=== PATIENT | male | born 1955 | race Caucasian/White ===

== ENCOUNTER → 2024-12-24 10:40 | Outpatient (BNVA) | payer MEDICARE, SELFPAY | PROVIDERS: PCP Family Medicine; Visit Provider Family Medicine | DX: I10 Essential (primary) hypertension (principal); I50.9 Heart failure, unspecified; I71.20 Thoracic aortic aneurysm, without rupture, unspecified; E55.9 Vitamin D deficiency, unspecified; I12.9 Hypertensive chronic kidney disease with stage 1 through stage 4 chronic kidney disease, or unspecified chronic kidney disease; N18.30 Chronic kidney disease, stage 3 unspecified; J45.909 Unspecified asthma, uncomplicated | CPT/HCPCS: 80053; 80061; 82306; 82607; 83036; 85025 ==

== ENCOUNTER 2025-02-26 17:56 | Emergency (ER) | payer MEDICARE, SELFPAY ==
[2025-02-26 17:58] VITALS: BP 169/82; PULSE 65; RESP 16; TEMP 36.6; O2SAT 97; BMI 33.2
--- NOTE | 2025-02-26 18:32 | XRR_ITS ---
PROCEDURE INFORMATION: Exam: XR Chest Exam date and time: 02/26/2025 6:38 PM Age: 69 years old Clinical indication: Shortness of breath; Additional info: SOB, HX asthma, clear lungs after tx TECHNIQUE: Imaging protocol: Radiologic exam of the chest. Views: 1 view. COMPARISON: No relevant prior studies available. FINDINGS: Lungs: Unremarkable. No consolidation. Pleural spaces: Unremarkable. No pleural effusion. No pneumothorax. Heart/Mediastinum: Unremarkable. No cardiomegaly. Bones/joints: Unremarkable. XR/XR chest 1V portable [id number] IMPRESSION: No acute findings.
--- NOTE | 2025-02-26 18:32 | ECG_ITS ---
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 Measurements Intervals [place] Rate: 66 P: 24 [place]: 153 QRS: -11 QRSD: 94 T: 213 QT: 408 QTc: 428 Interpretive Statements SINUS RHYTHM LEFT VENTRICULAR HYPERTROPHY AND ST-T CHANGE [VOLTAGE CRITERIA PLUS ST/T ABNORMALITY] No previous ECG available for comparison Electronically Signed On 02-26-2025 23:28:35 CDT by Sudarshan See M.D. [email or web address] [id number]
[2025-02-26 18:42] LABS: Hematocrit 46.6 % (37-53); Hemoglobin 15.90 g/dL (11.27-16.99); Mean Corpuscular HGB Conc 34.1 g/dL (30-55); Mean Corpuscular Hemoglobin 28.5 pg (27-33); Mean Corpuscular Volume 83.5 fl (82-101); Nucleated Red Blood Cells % 0 %; Platelet Count 246 10^3/cmm (157-399); Red Blood Count 5.58 10^6/uL (3.85-5.65); White Blood Count 7.79 10^3/uL (3.29-11.43)
[2025-02-26 18:49] LABS: INR 0.85 (0.8-1.2); Prothrombin Time 12.30 SECONDS (12.1-14.9)
[2025-02-26 18:59] LABS: Troponin(5th) Baseline 15 ng/L (0-15)
[2025-02-26 19:06] LABS: Alanine Aminotransferase 16 U/L (0-41); Albumin Level 4.6 g/dL (3.5-5.2); Alkaline Phosphatase 98 U/L (40-130); Anion Gap 18.2 (5-19); Aspartate Amino Transferase 16 U/L (0-40); Blood Urea Nitrogen 15 mg/dL (8-23); Calcium 9.5 mg/dL (8.5-10.5); Carbon Dioxide 19 mmol/L (22-29); Chloride 111 mmol/L (98-107); Creatinine Clr Calc Pharmacy 80.4399; Globulin 2.4 g/dL (1.3-4.6); Glucose 102 mg/dL (65-115); Magnesium 2.2 mg/dL (1.7-2.3); NT Pro B Type Natriuretic Pept 138 pg/mL (0-125); Osmolality Calculated 299 mOsm/kg (285-295); Potassium 4.2 mmol/L (3.5-5.1); Sodium 144 mmol/L (136-145); Total Protein 7.0 g/dL (6.6-8.7)
[2025-02-26 19:24] VITALS: BP 155/85; PULSE 57; O2SAT 93
[2025-02-26 19:53] LABS: Respiratory Syncytial Virus Ce NEGATIVE (Negative); SARS-CoV-2 PCR NEGATIVE (Negative)
--- NOTE | 2025-02-26 20:02 | ED_ITS ---
HPI - SOB/Dyspnea 2 General: Chief Complaint: Shortness of Breath/Dyspnea Stated Complaint: SOB Time Seen by Provider: 02/26/25 17:57 History of Present Illness: HPI Narrative: Patient presenting to the emergency department with acute onset of shortness of breath while he was driving, he tried his inhaler but then ran out, he reports he was feeling lightheaded and diaphoretic and EMS was called by a concerned bystander, they gave him a DuoNeb and he reports his symptoms have markedly improved but still feels somewhat short of breath. Denies any chest pain, denies passing out, denies fever, denies leg swelling or calf pain. He reports a remote history of CHF and stage III CKD, history of hypertension, history of asthma, history of CAD. He reports having viral symptoms approximately 2 weeks ago that have since resolved, he denies recent fever or cough in the last 2 days Related Data Previous Rx's ?Medication ?Instructions ?Recorded albuterol sulfate 90 mcg/actuation 1 inh inhalation QI D PRN shortness 12/24/24 aerosol inhaler (Ventolin HFA) of breath or wheezing # 6.7 grams amlodipine 10 mg tablet 10 mg PO DAILY bp #90 tabs 0 12/24/24 carvedilol 3.125 mg tablet 3.125 mg PO BID bp #90 tabs 12/24/24 cholecalciferol (vitamin D3) 25 25 mcg PO DAILY #1 cap 12/24/24 mcg (1,000 unit) capsule ipratropium 0.5 mg-albuterol 3 mg 3 ml inhalation Q6H PRN wheezing 12/24/24 (2.5 mg base)/3 mL nebulization #1 mL soln olmesartan 40 mg tablet 40 mg PO DAILY bp #90 tabs 0 12/24/24 Allergies Allergy/AdvReac Type Severity Reaction Status Date / Time atenolol Allergy Severe low pulse Verified 12/24/24 10:05 and irregular heart rate codeine Allergy Severe ALGY-Hives Verified 12/24/24 10:05 doxycycline Allergy Severe ALGY-Hives Verified 12/24/24 10:05 hydrocodone Allergy Severe itching, Verified 12/24/24 10:05 swollen eyes ibuprofen Allergy Severe ALGY-Hives Verified 12/24/24 10:05 Iodinated Contrast Media Allergy Severe itching Verified 12/24/24 10:05 and rash naproxen Allergy Severe ALGY-Anaphy Verified 12/24/24 10:05 laxis oxycodone Allergy Severe ALGY-Hives Verified 12/24/24 10:05 Sulfa (Sulfonamide Allergy Severe transient Verified 12/24/24 10:05 Antibiotics) renal insufficiency tramadol Allergy Severe severe Verified 12/24/24 10:05 itching, swollen eyes atorvastatin Allergy Intermediate ADR-Cramping Verified 12/24/24 10:05 of the Muscles azithromycin Allergy Intermediate angioedema Verified 12/24/24 10:05 dexamethasone Allergy Intermediate scalp Verified 12/24/24 10:05 itch, seeing sopts phenylephrine (From [place]icks Allergy Intermediate itching, Verified 12/24/24 10:05 Sinex (PE)) swelling triamterene Allergy Intermediate ALGY-Hives Verified 12/24/24 10:05 sulfamethoxazole (From Allergy Mild ADR-Itching Verified 12/24/24 10:05 Sulfamethoxazole-Trimethoprim) trimethoprim (From Allergy Mild ADR-Itching Verified 12/24/24 10:05 Sulfamethoxazole-Trimethoprim) PFSH ED 2 PFSH: Social History Smoking and tobacco/nicotine status: never used tobacco/nicotine Physical Exam 2 Narrative: EXAM NARRATIVE: Gen: A&Ox4, no acute distress, nontoxic appearing HEENT: Normocephalic, atraumatic, no scleral icterus, external ears normal, moist mucous membranes Neck: Supple, full range of motion, no observable masses Lungs: No Respiratory distress, Lungs clear to auscultation bilaterally no rales, rhonchi, wheezing CV: Regular rate and rhythm, no murmur, no pitting edema to lower extremities bilaterally Abdomen: Soft, nondistended, nontender to palpation MSK: No joint swelling, FROM all 4 extremities Skin: No rashes, petechiae, lesions. Normal color per patient. Neuro: Alert and oriented, no slurred speech, sensation and strength grossly intact all 4 extremities Psych: Appropriate for situation. Course 2 Reevaluation(s): Reevaluation #1: Patient reassessed, reports he is now asymptomatic, chest x-ray no acute pathology, EKG showing possible LVH with no acute ischemia or arrhythmia, blood work with proBNP 138 nonspecific without evidence of peripheral or central volume overload, negative troponin, at this time patient is stable for discharge with follow-up with his PCP. Also would recommend he see a machine stapler, he reports that he will follow-up with a machine stapler referred to him by his PCP and does not want an referral in the ER. Time: 20:00 Vital Signs: Vital signs: Vital Signs Temperature 98 F 02/26/25 17:58 Pulse Rate 55 L 02/26/25 20:54 Respiratory Rate 16 02/26/25 17:58 Blood Pressure 162/79 02/26/25 20:54 Pulse Oximetry 94 02/26/25 20:54 Oxygen Delivery Me thod Room Air 02/26/25 17:58 MDM - SOB/Dyspnea Medical Decision Making 69-year-old male history of CHF CAD CKD and asthma presenting to the emergency room with acute onset of shortness of breath while driving, attempted his albuterol inhaler without improvement, did receive a DuoNeb by EMS and reports his symptoms have improved prior to arrival, on my exam he does not have any obvious wheezing or decreased breath sounds, he has a benign physical exam in the ER, will obtain a cardiac workup given his underlying medical history, reassess for disposition Lab Data No leukocytosis, no anemia, mild acidosis, creatinine 1.1, normal electrolytes, normal troponin, proBNP minimally elevated but in the indeterminate zone 02/26/25 18:04 02/26/25 18:04 Labs/Radiology: Radiology Impressions Chest X-Ray 02/26/25 18:32 IMPRESSION: No acute findings. Laboratory Results WBC 7.79 10^3/uL (3.29-11.43) 02/26/25 18:04 RBC 5.58 10^6/uL (3.85-5.65) 02/26/25 18:04 Hgb 15.90 g/dL (11.27-16.99) 02/26/25 18:04 Hct 46.6 % (37-53) 02/26/25 18:04 MCV 83.5 fl (82-101) 02/26/25 18:04 MCH 28.5 pg (27-33) 02/26/25 18:04 MCHC 34.1 g/dL (30-55) 02/26/25 18:04 RDW 13.3 % (12.1-15.1) 02/26/25 18:04 Plt Count 246 10^3/cmm (157-399) 02/26/25 18:04 MPV 9.6 fL (7.4-10.4) 02/26/25 18:04 Neut % (Auto) 56.5 % 02/26/25 18:04 Lymph % (Auto) 35.0 % 02/26/25 18:04 [place] % (Auto) 6.3 % 02/26/25 18:04 Eos % (Auto) 1.3 % 02/26/25 18:04 Baso % (Auto) 0.5 % 02/26/25 18:04 Neut # (Auto) 4.40 10^3/uL (1.8-7.7) 02/26/25 18:04 Lymph # (Auto) 2.7 10^3/uL (0.8-4.8) 02/26/25 18:04 [place] # (Auto) 0.5 10^3/uL (0.2-0.9) 02/26/25 18:04 Eos # (Auto) 0.1 10^3/uL (0.0-0.8) 02/26/25 18:04 Baso # (Auto) 0.0 10^3/uL (0.0-0.1) 02/26/25 18:04 Nucleated RBC % (auto) 0 % 02/26/25 18:04 Nucleated RBCs # 0.0 /100WBC 02/26/25 18:04 PT 12.30 SECONDS (12.1-14.9) 02/26/25 18:04 INR 0.85 (0.8-1.2) 02/26/25 18:04 Sodium 144 mmol/L (136-145) 02/26/25 18:04 Potassium 4.2 mmol/L (3.5-5.1) 02/26/25 18:04 Chloride 111 mmol/L (98-107) H 02/26/25 18:04 Carbon Dioxide 19 mmol/L (22-29) L 02/26/25 18:04 Anion Gap 18.2 (5-19) 02/26/25 18:04 BUN 15 mg/dL (8-23) 02/26/25 18:04 Creatinine 1.1 mg/dL (0.7-1.2) 02/26/25 18:04 GFR Calculation 66.2 mL/min (90-130) L 02/26/25 18:04 Glucose 102 mg/dL (65-115) 02/26/25 18:04 Calculated Osmolality 299 mOsm/kg (285-295) H 02/26/25 18:04 Calcium 9.5 mg/dL (8.5-10.5) 02/26/25 18:04 Magnesium 2.2 mg/dL (1.7-2.3) 02/26/25 18:04 Total Bilirubin 0.5 mg/dL (0.15-1.2) 02/26/25 18:04 AST 16 U/L (0-40) 02/26/25 18:04 ALT 16 U/L (0-41) 02/26/25 18:04 Alkaline Phosphatase 98 U/L (40-130) 02/26/25 18:04 Troponin T Baseline 15 ng/L (0-15) 02/26/25 18:04 NT-Pro-B Natriuret Pep 138 pg/mL (0-125) H 02/26/25 18:04 Total Protein 7.0 g/dL (6.6-8.7) 02/26/25 18:04 Albumin 4.6 g/dL (3.5-5.2) 02/26/25 18:04 Globulin 2.4 g/dL (1.3-4.6) 02/26/25 18:04 Influenza A (PCR) Negative (Negative) 02/26/25 18:34 Influenza Type B (PCR) Negative (Negative) 02/26/25 18:34 RSV (PCR) Negative (Negative) 02/26/25 18:34 SARS-CoV-2 (PCR) Negative (Negative) 02/26/25 18:34 All radiology interpretation(s) finalized by discharge ED provider radiology interpretation(s): Chest x-ray negative for pulmonary edema pleural effusions bacterial consolidations or pneumothorax EKG Data EKG 1: I personally reviewed and interpreted this EKG as follows: EKG Interpretation Date: 02/26/25 EKG interpretation time: 17:57 Interpretation: Sinus rhythm at 66 bpm, LVH by criteria, no STEMI, no ectopy, normal axis, QTc 421 ms Discharge Plan Discharge Patient Disposition: Home Clinical Impression: Shortness of breath, Left ventricular hypertrophy Condition: Stable Prescriptions: No Action ipratropium-albuterol 0.5 mg-3 mg(2.5 mg base)/3 mL solution for nebulization 3 ml inhalation Q6H PRN (Reason: wheezing) Qty: 1 0RF cholecalciferol (vitamin D3) 25 mcg (1,000 unit) capsule 25 mcg PO DAILY Qty: 1 0RF albuterol sulfate [Ventolin HFA] 90 mcg/actuation HFA aerosol inhaler 1 inh inhalation QID PRN (Reason: shortness of breath or wheezing) Qty: 6.7 0RF amlodipine 10 mg tablet 10 mg PO DAILY Qty: 90 3RF olmesartan 40 mg tablet 40 mg PO DAILY Qty: 90 3RF carvedilol 3.125 mg tablet 3.125 mg PO BID Qty: 90 3RF Rx Instructions: must administer with a meal/food Discharge Orders: Discharge ED (Routine); Ordered 02/26/25 Ordered By: Calvin Cao Referrals: Baljit Rodgers DO [Primary Care Provider, Family Practice] Patient Instructions: Shortness of Breath (ED), Patient Portal & [place] Instructions Print Language: Sinhala Coding Level of Care Code ED Circular Knife Cutter Machine for [place]
[2025-02-26 20:54] VITALS: BP 162/79; PULSE 55; O2SAT 94
== END 2025-02-26 21:17 | disposition home or self-care (01) ==
PROVIDERS: Emergency Provider Student in an Organized Health Care Education/Training Program; PCP Family Medicine
DX: R06.02 Shortness of breath (principal); I51.7 Cardiomegaly; Z11.52 Encounter for screening for COVID-19
CPT/HCPCS: 71045; 80053; 83735; 83880; 84484; 85025; 85610; 87637; 93005; 99285